=== PATIENT | male | born 1975 | race Caucasian/White ===

== ENCOUNTER 2020-05-28 12:26 | Emergency (ER) | payer SELFPAY ==
[~2020-05-28] VITALS: Ht 177.8 cm; Wt 77.1 kg
[2020-05-28] MEDS ORDERED: KLONOPIN1 MG PO (12:32)
== END 2020-05-28 13:07 | disposition home or self-care (01) ==
LOC: ED 12:26
DX: S60.221A Contusion of right hand, initial encounter (principal); W22.8XXA Striking against or struck by other objects, initial encounter; F17.200 Nicotine dependence, unspecified, uncomplicated; Z91.018 Allergy to other foods
CPT/HCPCS: 73110; 73130; 99283-25